=== PATIENT | male | born 1980 | race Caucasian/White ===

== ENCOUNTER 2018-06-25 11:26 | Emergency (ER) | payer OTHER ==
[2018-06-25] MEDS ORDERED: Lidocaine 2% Viscous Solution 15 ML Cup PO ONE (11:43)
[2018-06-25] MEDS ORDERED: Benzocaine 20% Topical Spray UD MUCMEM ONE (11:43)
--- NOTE | 2018-06-25 11:53 | EDM.PDOC ---
ED HPI GENERAL MEDICAL PROBLEM - General Chief Complaint: ENT Problem Stated Complaint: TOOTH PAIN Time Seen by Provider: 06/25/18 11:53 Source of Information: Reports: Patient History Limitations: Reports: No Limitations - History of Present Illness INITIAL COMMENTS - FREE TEXT/NARRATIVE: HISTORY AND PHYSICAL: History of present illness: Patient is a 38-year-old male here with complaint of tooth pain. He states he cracked his tooth a couple of weeks ago, was using topical OTC anesthetic medication which did help until the last week. He states pain is worsening and he is concerned for infection. He did call his dentist back home and is scheduled for an appointment next week. He denies fevers or chills. He is otherwise in his usual state of good health. Review of systems: As per history of present illness and below otherwise all systems reviewed and negative. Past medical history: As per history of present illness and as reviewed below otherwise noncontributory. Surgical history: As per history of present illness and as reviewed below otherwise noncontributory. Social history: No reported history of drug or alcohol abuse. Family history: As per history of present illness and as reviewed below otherwise noncontributory. Physical exam: General: Patient sitting comfortably in no acute distress and nontoxic appearing HEENT: Poor dentition throughout. There is swelling and erythema of the gums at the left lower tooth #20 and #19. Atraumatic, normocephalic, pupils reactive, negative for conjunctival pallor or scleral icterus, mucous membranes moist, throat clear, neck supple, nontender, trachea midline. No meningeal signs. Lungs: Clear to auscultation, breath sounds equal bilaterally, chest nontender. Heart: S1S2, regular, negative for clicks, rubs, or overt murmur. Abdomen: Soft, nondistended, nontender. Negative for masses or hepatosplenomegaly. Negative for costovertebral tenderness. Pelvis: Stable nontender. Genitourinary: Deferred. Rectal: Deferred. Extremities: Atraumatic, negative for cords or calf pain. Neurovascular unremarkable. Neuro: Awake, alert, oriented. Cranial nerves II through XII unremarkable. Cerebellum unremarkable. Motor and sensory unremarkable throughout. Exam nonfocal. Notes: Diagnostics: None Therapeutics: Dental balls Prescriptions: Augmentin Impression: Dentalgia, dental infection Plan: 1. Take antibiotic and use dental balls as instructed. 2. Follow-up with your dentist. 3. Return to ED as needed as discussed Definitive disposition and diagnosis as appropriate pending reevaluation and review of above. - Related Data Allergies Allergy/AdvReac Type Severity Reaction Status Date / Time No Known Allergies Allergy Verified 06/25/18 11:43 Home Meds: Home Meds Amoxicillin/Clavulanate K [Augmentin 875-125 MG] 1 tab PO BID 7 Days #14 tablet 06/25/18 [Rx] Past Medical History - Past Health History Medical/Surgical History: Denies Medical/Surgical History - Infectious Disease History Infectious Disease History: Reports: Chicken Pox Social & Family History - Family History Family Medical History: Noncontributory - Tobacco Use Smoking Status *Q: Former Smoker Used Tobacco, but Quit: Yes Month/Year Tobacco Last Used: 2018 - Caffeine Use Caffeine Use: Reports: Tea - Recreational Drug Use Recreational Drug Use: No ED ROS ENT - Review of Systems Review Of Systems: ROS reveals no pertinent complaints other than HPI. ED EXAM, ENT - Physical Exam Exam: See Below (see dictation) Course - Vital Signs Last Recorded V/S: Last Vital Signs Temp 97.3 F 06/25/18 11:44 Pulse 83 06/25/18 11:44 Resp 18 06/25/18 11:44 BP 150/84 H 06/25/18 11:44 Pulse Ox 98 06/25/18 11:44 - Orders/Labs/Meds Meds: Medications Discontinued Medications Generic Name Dose Route Start Last Admin Trade Name Freq PRN Reason Stop Dose Admin Benzocaine 2 each 06/25/18 11:43 Hurricaine One 20% MUCMEM 06/25/18 11:44 ONETIME ONE Lidocaine HCl 15 ml 06/25/18 11:43 Xylocaine 2% Viscous PO 06/25/18 11:44 ONETIME ONE Departure - Departure Time of Disposition: 11:54 Disposition: Home, Self-Care 01 Condition: Good Clinical Impression: Dentalgia, Dental infection - Discharge Information Prescriptions: Amoxicillin/Clavulanate K [Augmentin 875-125 MG] 1 tab PO BID 7 Days #14 tablet Instructions: Dental Abscess, [id number] Referrals: PCP,None [Primary Care Provider] - Forms: ED Department Discharge Additional Instructions: The following information is given to patients seen in the emergency department who are being discharged to home. This information is to outline your options for follow-up care. We provide all patients seen in our emergency department with a follow-up referral. The need for follow-up, as well as the timing and circumstances, are variable depending upon the specifics of your emergency department visit. If you don't have a primary care physician on staff, we will provide you with a referral. We always advise you to contact your personal physician following an emergency department visit to inform them of the circumstance of the visit and for follow-up with them and/or the need for any referrals to a consulting specialist. The emergency department will also refer you to a specialist when appropriate. This referral assures that you have the opportunity for follow-up care with a specialist. All of these measure are taken in an effort to provide you with optimal care, which includes your follow-up. Under all circumstances we always encourage you to contact your private physician who remains a resource for coordinating your care. When calling for follow-up care, please make the office aware that this follow-up is from your recent emergency room visit. If for any reason you are refused follow-up, please contact the [facility] Emergency Department at and asked to speak to the emergency department charge nurse. 1. Take antibiotic and use dental balls as instructed. 2. Follow-up with your dentist. 3. Return to ED as needed as discussed
== END 2018-06-25 12:10 | disposition home or self-care (01) ==
LOC: MW.ED 11:26
DX: K04.7 Periapical abscess without sinus (principal); Z87.891 Personal history of nicotine dependence
CPT/HCPCS: 99282; A9270; 99283